=== PATIENT | female | born 1950 | race African-American/Black ===

== ENCOUNTER → 2017-07-13 | Outpatient (CLI) | payer OTHER ==
[~2017-07-13] MED LIST: AMIT10 PO; CLON.1 PO; ECOT81TA2 PO; FLUO-1 PO; HYDR-2952 PO; METO25 PO; PRAV40 PO; SERO300T OR; Z.0.OXYGEN INH
[2017-07-13 13:56] LABS: BLOOD GAS BASE EXCESS 0.7 mmol/L (-2-2); BLOOD GAS CARBOXYHEMOGLOBIN 7.4 % (0-4); BLOOD GAS HCO3 25 mmol/L (22-26); BLOOD GAS METHEMOGLOBIN 1.1 % (0-2); BLOOD GAS O2 HGB SATURATION 83 % (90-100); BLOOD GAS OXYGEN CONTENT 17.4 Vol % (12.0-20.0); BLOOD GAS PCO2 40 mmHg (38-42); BLOOD GAS PO2 58 mmHg (61-120); TEMP CORR TO 99.1
[2017-07-13 13:57] LABS: CRITICAL VALUE YES; DRAW SITE RT RADIAL; FIO2 21 %; NUMBER OF ARTERIAL PUNCTURES 1; STAT NO; ULNAR PULSE PRESENT
--- NOTE | 2017-07-15 11:03 | RSPPFT ---
DATE OF PROCEDURE: 07/13/17 COMMENTS: Spirometry with FVC of 1.5 at 57% of predicted, FEV1 of 1.0 at 45%, FEV1/FVC ratio is decreased. Flow is decreased at FEF 25, FEF 50, FEF 75 and FEF 25-75. There is no response after bronchodilator treatment. Lung volumes show residual volume is normal. TLC is normal. Diffusion capacity is severely decreased. Flow volume loop indicates an obstructive pattern. Room air arterial blood gases show pH of 7.41, PCO2 of 40, PO2 of 58, BiCarb of 25 and O2 Saturation at 83%. 6-minute walk test shows de-saturation. Patient did not have a complete walk test because she could not walk. IMPRESSION: 1. No response after bronchodilator treatment. 2. Normal lung volumes. 3. Severely decreased diffusion capacity. 4. Blood gases show hypoxia on room air. 5. Moderately severe obstructive defect.
== END ==
LOC: HRSP 12:42
PROVIDERS: ATTEND Specialist
DX: J44.9 Chronic obstructive pulmonary disease, unspecified (principal)
CPT/HCPCS: 36600; 82805; 94060; 94726; 94729